=== PATIENT | male | born 1960 | race Caucasian/White ===

== ENCOUNTER 2018-09-23 21:27 | Emergency (ER) | payer BC ==
[2018-09-23] MEDS ORDERED: Sodium Chloride 0.9% 10 ML Syringe FLUSH PRN (21:44)
[2018-09-23] MEDS ORDERED: Sodium Chloride 0.9% 1,000 ML IV ONE (22:34)
[2018-09-23] MEDS ORDERED: Potassium Chloride 20 MEQ Tab.ER PO ONE (22:35)
[2018-09-23] MEDS ORDERED: Aspirin 81 MG Tab.Chew PO ONE (22:37)
--- NOTE | 2018-09-23 22:43 | EDM.PDOC ---
ED HPI GENERAL MEDICAL PROBLEM - General Chief Complaint: Chest Pain Stated Complaint: chest pressure Time Seen by Provider: 09/23/18 21:45 Source of Information: Reports: Patient History Limitations: Reports: No Limitations - History of Present Illness INITIAL COMMENTS - FREE TEXT/NARRATIVE: Patient comes to ER with complaint of chest pressure. Pressure essentially resolved by time of arrival. Normal day for patient prior to this. Was outside from 5-8:30 pm working and performing physically demanding tasks/mowing/bagging and feels that he did not drink enough water. Came inside and showered when work was done. Then has meal. Went to sit down and watch TV after eating and that is when he felt the chest pressure. He denies having actual chest pain. No other pain complaints. Pain did not radiate to neck/shoulder/arms. No acute increase in SOB noted. Patient is morbidly obese and has a baseline degree of SOB per self report and this did not change. No diaphoresis. Had some dizziness today but that is not unusual for him, he says that he has some chronic baseline lightheadedness and this was not in any way worse today. Episode of pressure lasted approximately 10 min. No other changes/complaints reported. Patient had negative stress test within the last few years. No history of NV/ CAD per patient but review of previous history shows concern for possible non- STEMI in 2015 - Related Data Allergies Allergy/AdvReac Type Severity Reaction Status Date / Time No Known Allergies Allergy Verified 09/23/18 21:43 Home Meds: Home Meds amLODIPine [Norvasc] 5 mg PO DAILY 01/13/15 [History] buPROPion HCl [Wellbutrin SR] 375 mg PO DAILY 03/24/16 [History] hydroCHLOROthiazide [Hydrochlorothiazide] 50 mg PO DAILY 03/24/16 [History] Cinnamon Bark [Cinnamon] 1,500 mg PO DAILY 09/23/18 [History] Ciprofloxacin [Ciprofloxacin HCl] 1 tab PO ASDIRECTED PRN 09/23/18 [History] Losartan Potassium 1 tab PO DAILY 09/23/18 [History] Magnesium Oxide [Magnesium] 500 mg PO DAILY #90 capsule 09/23/18 [Rx] Non-Formulary Medication [NF Drug] 1 each PO BID 09/23/18 [History] Non-Formulary Medication [NF Drug] 1 ml PO DAILY 09/23/18 [History] metFORMIN [Glucophage XR] 500 mg PO BIDMEALS 09/23/18 [History] Past Medical History HEENT History: Reports: Allergic Rhinitis, Hard of Hearing, Impaired Vision, Sinusitis, Other (See Below) Other HEENT History: Wears glasses, no hearing aide therapy, recurrent allergic sinusitis, possible idiopathic angioedema Cardiovascular History: Reports: Arrhythmia, CAD, High Cholesterol, Hypertension , NV, Other (See Below) Other Cardiovascular History: Questionable non-STEMI on 01/13/15, sinus tachycardia, chronic d-dimer elevation of unknown etiology Respiratory History: Reports: COPD, Sleep Apnea, Other (See Below) Other Respiratory History: Patient compliant with CPAP Gastrointestinal History: Reports: Chronic Constipation, Colon Polyp, Gastritis , GERD, GI Bleed, PUD, Other (See Below) Other Gastrointestinal History: Rectal hyperplastic colonic polyp on 11/15/13, small hiatal hernia with history of peptic ulcer disease and upper GI bleed in 2006 requiring transfusion as below, fatty liver and benign hepatic cyst Genitourinary History: Reports: Acute Renal Failure, Retention, Urinary, UTI, Recurrent, Other (See Below) Other Genitourinary History: History of phimosis and chronic urethral stricture which does require daily self catheterizations with previous procedures as below , acute renal failure in December 2014 Musculoskeletal History: Reports: Arthritis, Back Pain, Chronic, Neck Pain, Chronic, Osteoarthritis, Other (See Below) Other Musculoskeletal History: Moderate degenerative disc disease especially in the L3-S1 region with some foraminal stenosis Neurological History: Reports: None. Denies: Cerebral Aneurysms, Concussion, CVA, Headaches, Chronic, Head Trauma, Migraines, MS, Neuropathy, Diabetic, Neuropathy, Peripheral, Parkinson's, Seizure, TIA Psychiatric History: Reports: Anxiety, Depression. Denies: Abuse, Victim of, ADD, ADHD, Addiction, Psych Hospitalization(s), PTSD, Suicide Attempt, Suicidal Ideation Endocrine/Metabolic History: Reports: Diabetes, Type II, Hypothyroidism, Obesity /BMI 30+ Hematologic History: Reports: Blood Transfusion(s), Other (See Below) Other Hematologic History: Blood transfusions after GI bleed as above Immunologic History: Reports: None. Denies: AIDS, HIV, SLE Oncologic (Cancer) History: Reports: None. Denies: Basal Cell Carcinoma, Hodgkin's Lymphoma, Leukemia, Lymphoma, Malignant Melanoma, Non-Hodgkin's Lymphoma, Squamous Cell Carcinoma Dermatologic History: Reports: None. Denies: Eczema, Psoriasis - Infectious Disease History Infectious Disease History: Reports: Chicken Pox - Past Surgical History GI Surgical History: Reports: Colonoscopy, EGD, Polypectomy, Other (See Below) Male Surgical History: Reports: Other (See Below) Musculoskeletal Surgical History: Reports: Arthroscopic Knee, Arthroscopic Procedure, Other (See Below) - Past Imaging History Past Imaging History: Reports: Angiography, Cardiac Echo, CAT Scan, Stress Testing, Venous Doppler Social & Family History - Family History Family Medical History: Noncontributory HEENT: Reports: None, Cataract, Other (See Below) Other HEENT Family History: Father with cataracts Cardiac: Reports: CAD, High Cholesterol, Hypertension, NV, Other (See Below) Other Cardiac Family History: Father with initial NV in his 50s with history of CABG fatal NV at age 70, paternal grandfather with history of NV, hypertension in father and his sister, hyperlipidemia and his father and sister Respiratory: Reports: Asthma, Other (See Below) Other Respiratory Family Hisory: Half brother with asthma GI: Reports: Colon Polyps, Other (See Below) Other GI Family History: Father and sister with colonic polyps : Reports: Other (See Below) Other Family History: Mother with history of nephrectomy for possible renal cancer in her 70s OBGYN: Reports: None. Denies: Endometriosis, Recurrent Spontaneous Musculoskeletal: Reports: Back pain, Chronic, Osteoarthritis, RA, Other (See Below) Other Musculoskeletal Family History: Half sister with rheumatoid arthritis, mother with osteoarthritis and chronic back pain Neurological: Reports: None. Denies: Alzheimers Disease, Cerebral Aneurysms, CVA, Dementia, Migraines, MS, Neuropathy, Diabetic, Parkinson's, Seizure, TIA Psychiatric: Reports: Anxiety, Depression, Other (See Below) Other Psychiatric Family History: Father and sister with anxiety depression disorder Endocrine/Metabolic: Reports: Diabetes, type II, Hypothyroidism, IDDM, Other ( See Below) Other Endocrine/Metabolic Family History: IDDM in paternal uncle and paternal grandparents, father with AODM, mother with hypothyroidism Hematologic: Reports: None. Denies: Anemia, Transfusion Reaction Immunologic: Reports: None. Denies: AIDS, HIV Dermatologic: Reports: None. Denies: Angiodema, Eczema, Psoriasis Oncologic: Reports: Colon, Renal, Other (See Below) Other Oncologic Family History: Mother with possible renal cancer as above, paternal grandmother with colon cancer at age 84, paternal uncle with colon cancer in his 60s, patient denies history of bladder cancer in paternal grandfather despite previous records from [facility] - Tobacco Use Smoking Status *Q: Never Smoker - Caffeine Use Caffeine Use: Reports: Coffee (2 cups per day), Soda (2 sodas per day). Denies : Energy Drinks, Tea - Alcohol Use Alcohol Use History: No Alcohol Use Frequency: Rarely - Recreational Drug Use Recreational Drug Use: No Drug Use in Last 12 Months: No - Living Situation & Occupation Living situation: Reports: , with Family Occupation: Employed ED ROS GENERAL - Review of Systems Review Of Systems: ROS reveals no pertinent complaints other than HPI. ED EXAM, GENERAL - Physical Exam Exam: See Below Exam Limited By: No Limitations General Appearance: Alert, No Apparent Distress, Obese Eye Exam: Bilateral Eye: EOMI, PERRL Ears: Normal External Exam Nose: No: Nasal Deformity, Nasal Swelling, Nasal Drainage Throat/Mouth: Normal Lips, Normal Voice, No Airway Compromise Head: Atraumatic, Normocephalic Neck: Normal Inspection, Supple, Non-Tender, Full Range of Motion Respiratory/Chest: No Respiratory Distress, Lungs Clear, Normal Breath Sounds, No Accessory Muscle Use, Chest Non-Tender Cardiovascular: No Edema, No Murmur, Tachycardia Peripheral Pulses: 2+: Radial (L), Radial (R) GI/Abdominal: Normal Bowel Sounds, Soft, Non-Tender (Male) Exam: Deferred Rectal (Males) Exam: Deferred Back Exam: Normal Inspection. No: CVA Tenderness (L), CVA Tenderness (R), Muscle Spasm, Paraspinal Tenderness, Vertebral Tenderness Extremities: Non-Tender, Normal Capillary Refill Neurological: Alert, Oriented, Normal Cognition, Normal Gait, No Motor/Sensory Deficits Psychiatric: Normal Affect, Normal Mood Skin Exam: Warm, Dry EKG INTERPRETATION EKG Date: 09/23/18 Time: 21:31 Rhythm: Other (sinus tach) Rate (Beats/Min): 101 [place]: Normal P-Wave: Present QRS: Normal ST-T: Normal QT: Normal Comparison: No Change Course - Vital Signs Last Recorded V/S: Last Vital Signs Temp 36.3 C 09/24/18 04:10 Pulse 68 09/24/18 04:10 Resp 19 09/24/18 04:10 BP 136/65 07/28/19 04:10 Pulse Ox 94 L 09/24/18 04:10 - Orders/Labs/Meds Orders: Active Orders 24 hr Category Date Time Status Cardiac Monitoring [RC] . DIRECTED Care 09/23/18 21:45 Active EKG Documentation Completion [RC] ASDIRECTED Care 09/23/18 21:43 Active EKG Documentation Completion [RC] ASDIRECTED Care 09/24/18 04:15 Active Peripheral IV Care [RC] . DIRECTED Care 09/23/18 21:44 Active Vital Signs [RC] Q1H Care 09/23/18 22:52 Active Chest 2V [CR] Stat Exams 09/23/18 21:45 Taken Peripheral IV Insertion Adult [OM.PC] Routine Oth 09/23/18 21:44 Ordered Labs: Laboratory Tests 09/23/18 09/23/18 09/23/18 Range/Units 21:40 21:40 21:40 WBC 12.8 H (4.0-10.2) K/uL RBC 5.17 (4.33-5.41) M/uL Hgb 14.4 D (13.1-16.8) g/dL Hct 42.3 (39.0-49.0) % MCV 81.8 L (84.0-98.0) fL MCH 27.9 L (28.2-33.3) pg MCHC 34.0 (31.7-36.0) g/dL RDW 15.2 H (11.2-14.1) % Plt Count 238 (150-350) K/uL Neut % (Auto) 69.3 (45.0-80.0) % Lymph % (Auto) 21.9 (10.0-50.0) % [place] % (Auto) 7.1 (2.0-14.0) % Eos % (Auto) 1.2 (0.0-5.0) % Baso % (Auto) 0.5 (0.0-2.0) % Neut # (Auto) 8.87 H (1.40-7.00) K/uL Lymph # (Auto) 2.81 (0.50-3.50) K/uL [place] # (Auto) 0.91 (0.00-1.00) K/uL Eos # (Auto) 0.16 (0.00-0.50) K/uL Baso # (Auto) 0.06 (0.00-0.20) K/uL PT 11.5 (9.5-12.0) SEC INR 1.1 APTT 30.6 (21.0-31.3) SEC D-Dimer, Quantitative (0-400) ng/mL Sodium 137 (136-145) mmol/L Potassium 3.1 L (3.5-5.1) mmol/L Chloride 99 (98-107) mmol/L Carbon Dioxide 27.8 (21.0-32.0) mmol/L BUN 24 H (7-18) mg/dL Creatinine 1.44 H (0.51-1.17) mg/dL Est Cr Clr Drug Dosing 61.65 mL/min Estimated GFR (MDRD) 50 mL/min Glucose 156 H (74-106) mg/dL Lactic Acid (0.4-2.0) mmol/L Calcium 8.9 (8.5-10.1) mg/dL Magnesium 1.6 L (1.8-2.4) mg/dL Total Bilirubin 1.0 (0.2-1.0) mg/dL AST 18 (15-37) U/L ALT 33 (12-78) U/L Alkaline Phosphatase 71 (46-116) IU/L Creatine Kinase 122 (26-308) U/L Creatine Kinase Index 0.7 (0.0-2.5) % CK-MB (CK-2) 0.80 (0.00-3.60) ng/mL Troponin I 0.000 (0.000-0.056) ng/mL NT-Pro-B Natriuret Pep 19 (0-125) pg/mL Total Protein 7.3 (6.4-8.2) g/dL Albumin 3.7 (3.4-5.0) g/dL TSH, Ultra Sensitive 4.707 H (0.358-3.740) mIU/mL 09/23/18 09/23/18 09/24/18 Range/Units 21:40 21:40 03:30 WBC (4.0-10.2) K/uL RBC (4.33-5.41) M/uL Hgb (13.1-16.8) g/dL Hct (39.0-49.0) % MCV (84.0-98.0) fL MCH (28.2-33.3) pg MCHC (31.7-36.0) g/dL RDW (11.2-14.1) % Plt Count (150-350) K/uL Neut % (Auto) (45.0-80.0) % Lymph % (Auto) (10.0-50.0) % [place] % (Auto) (2.0-14.0) % Eos % (Auto) (0.0-5.0) % Baso % (Auto) (0.0-2.0) % Neut # (Auto) (1.40-7.00) K/uL Lymph # (Auto) (0.50-3.50) K/uL [place] # (Auto) (0.00-1.00) K/uL Eos # (Auto) (0.00-0.50) K/uL Baso # (Auto) (0.00-0.20) K/uL PT (9.5-12.0) SEC INR APTT (21.0-31.3) SEC D-Dimer, Quantitative 127 (0-400) ng/mL Sodium (136-145) mmol/L Potassium (3.5-5.1) mmol/L Chloride (98-107) mmol/L Carbon Dioxide (21.0-32.0) mmol/L BUN (7-18) mg/dL Creatinine (0.51-1.17) mg/dL Est Cr Clr Drug Dosing mL/min Estimated GFR (MDRD) mL/min Glucose (74-106) mg/dL Lactic Acid 1.4 (0.4-2.0) mmol/L Calcium (8.5-10.1) mg/dL Magnesium (1.8-2.4) mg/dL Total Bilirubin (0.2-1.0) mg/dL AST (15-37) U/L ALT (12-78) U/L Alkaline Phosphatase (46-116) IU/L Creatine Kinase (26-308) U/L Creatine Kinase Index (0.0-2.5) % CK-MB (CK-2) (0.00-3.60) ng/mL Troponin I 0.003 (0.000-0.056) ng/mL NT-Pro-B Natriuret Pep (0-125) pg/mL Total Protein (6.4-8.2) g/dL Albumin (3.4-5.0) g/dL TSH, Ultra Sensitive (0.358-3.740) mIU/mL Meds: Medications Discontinued Medications Generic Name Dose Route Start Last Admin Trade Name Freq PRN Reason Stop Dose Admin Aspirin 324 mg 09/23/18 22:37 09/24/18 00:34 Aspirin PO 09/23/18 22:38 324 mg ONETIME ONE Administration Sodium Chloride 1,000 mls @ 500 mls/hr 09/23/18 22:34 09/24/18 00:36 Normal Saline IV 09/24/18 00:33 500 mls/hr .BOLUS ONE Administration Magnesium Sulfate/Dextrose 1 100 mls @ 100 mls/hr 09/23/18 22:35 09/24/18 00: 35 gm/ Premix IV 09/23/18 23:34 100 mls/hr ONETIME ONE Administration Magnesium Sulfate/Dextrose 1 100 mls @ 100 mls/hr 09/24/18 01:00 09/24/18 02: 24 gm/ Premix IV 09/24/18 01:59 100 mls/hr ONETIME ONE Administration Potassium Chloride 40 meq 09/23/18 22:35 09/24/18 00:35 Klor-Con M20 PO 09/23/18 22:36 40 meq ONETIME ONE Administration Potassium Chloride 40 meq 09/24/18 02:00 09/24/18 02:24 Klor-Con M20 PO 09/24/18 02:01 40 meq ONETIME ONE Administration Sodium Chloride 10 ml 09/23/18 21:44 Saline Flush FLUSH ASDIRECTED PRN Keep Vein Open - Radiology Interpretation Free Text/Narrative:: Chest xray pending Radiology review. No focal infiltrate noted, no other acute processes noted. - Re-Assessments/Exams Free Text/Narrative Re-Assessment/Exam: Patient remained pain free. ASA given. Suspect dehydration in combination with GERD/eating likely contributed to patient's complaints this evening. Troponin and DDimer in normal range. No acute ST changes suggestive of ischemia noted on EKG. WBC mildly elevated at 12.8 Potassium decreased at 3.1 Patient has history of intermittent renal insufficiency and tonight BUN noted to be 24 and Cr 1.44 Suspect dehydration contributing to their elevation. Glu 156 Mg low at 1.6 TSH elevated at 4.7 Patient does not want admission for full rule out NV. He is willing to stay in the ER for a 6 hour timed Troponin draw. During this time he will receive IV fluids and IV Mag replacement to help bolster his Mag levels and overall hydration. Potassium PO will be given. If second lab remains unremarkable, patient is to follow up this week with his primary provider to discuss having a new stress test scheduled. He is also to have a full thyroid workup, and have his potassium and magnesium levels checked. BP should also be rechecked. He is to start regular Magnesium supplementation. Precautions reviewed. He is to follow up at the ER if any sudden acute worsening symptoms are noted. Free Text/Narrative Re-Assessment/Exam: 09/24/18 14:56 Second Troponin measurement normal at 0300. Patient symptom-free and wanting to go home. Repeat EKG showed sinus rhythm with rate of 68. Low amplitude P wave. No acute ST changes suggestive of ischemia. To follow up with primary provider this week. Departure - Departure Time of Disposition: 04:30 Disposition: Home, Self-Care 01 Condition: Good Clinical Impression: Chest heaviness, TSH elevation, Hypomagnesemia, Hypokalemia - Discharge Information *PRESCRIPTION DRUG MONITORING PROGRAM REVIEWED*: Not Applicable *COPY OF PRESCRIPTION DRUG MONITORING REPORT IN PATIENT MERYL: Not Applicable Prescriptions: Magnesium Oxide [Magnesium] 500 mg PO DAILY #90 capsule Instructions: Hypomagnesemia, Hypokalemia, Hypothyroidism, Nonspecific Chest Pain, [id number] Referrals: Bolivar Corral PA-C [Primary Care Provider] - Forms: ED Department Discharge Additional Instructions: It is very important that you follow up with your primary provider this week and 1-discuss new stress test need 2-have full Thyroid panel performed and be started on Thyroid replacement 3-have your BP rechecked 4-have your potassium and magnesium levels rechecked. purification supervisor Magnesium and start to take daily replacement of 400-500mg daily. Have your levels rechecked again in a month or two to see if any additional dosing is needed. 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 Do not stop your magnesium. Low levels are linked to lots of issues, such as dizziness and elevated blood pressure. You may need to start potassium too depending on what your levels are when you are rechecked. Follow up as needed if you have sudden worsening problems again. - My Orders Last 24 Hours: My Active Orders 09/23/18 21:43 EKG Documentation Completion [RC] ASDIRECTED 09/23/18 21:44 Peripheral IV Care [RC] . DIRECTED Peripheral IV Insertion Adult [OM.PC] Routine 09/23/18 21:45 Cardiac Monitoring [RC] . DIRECTED Chest 2V [CR] Stat 09/23/18 22:52 Vital Signs [RC] Q1H 09/24/18 04:15 EKG Documentation Completion [RC] ASDIRECTED - Assessment/Plan Last 24 Hours: My Active Orders 09/23/18 21:43 EKG Documentation Completion [RC] ASDIRECTED 09/23/18 21:44 Peripheral IV Care [RC] . DIRECTED Peripheral IV Insertion Adult [OM.PC] Routine 09/23/18 21:45 Cardiac Monitoring [RC] . DIRECTED Chest 2V [CR] Stat 09/23/18 22:52 Vital Signs [RC] Q1H 09/24/18 04:15 EKG Documentation Completion [RC] ASDIRECTED
[2018-09-24] MEDS ORDERED: Potassium Chloride 20 MEQ Tab.ER PO ONE (02:00)
[2018-09-24 02:32] VITALS: PULSE 68
[2018-09-24 05:07] VITALS: BP 136/65
== END 2018-09-24 04:40 | disposition home or self-care (01) ==
LOC: LL.ED 21:27
DX: R07.89 Other chest pain (principal); R94.6 Abnormal results of thyroid function studies; E83.42 Hypomagnesemia; E87.6 Hypokalemia; E78.00 Pure hypercholesterolemia, unspecified; I10 Essential (primary) hypertension; I25.2 Old myocardial infarction; J44.9 Chronic obstructive pulmonary disease, unspecified; F41.9 Anxiety disorder, unspecified; F32.9 Major depressive disorder, single episode, unspecified; E11.9 Type 2 diabetes mellitus without complications; Z79.899 Other long term (current) drug therapy
CPT/HCPCS: 36415; 71046; 80053; 82550; 82553; 83605; 83735; 83880; 84443; 84484; 85025; 85379; 85610; 85730; 93005; 96361; 96365; 96366; 99285; A9270; J3475; J7030

== ENCOUNTER 2019-12-31 12:05 | Emergency (ER) | payer BC ==
[2019-12-31 13:18] VITALS: BP 135/66; PULSE 77
--- NOTE | 2019-12-31 13:56 | EDM.PDOC ---
ED HPI GENERAL MEDICAL PROBLEM - General Chief Complaint: Back Pain or Injury Stated Complaint: L hip/back pain, R hip pain, pain with urination Time Seen by Provider: 12/31/19 12:15 Source of Information: Reports: Patient History Limitations: Reports: No Limitations - History of Present Illness INITIAL COMMENTS - FREE TEXT/NARRATIVE: Pt fell a week ago while in [place] and has persisitent pain in low back and both hips has had some hematuria but it is improved Still with some pain after urination Onset: Gradual Duration: Day(s): Location: Reports: Abdomen, Back, Pelvis Quality: Reports: Ache, Throbbing Severity: Moderate Worsens with: Reports: Movement Context: Reports: Trauma - Related Data Allergies Allergy/AdvReac Type Severity Reaction Status Date / Time No Known Allergies Allergy Verified 09/23/18 21:43 Home Meds: Home Meds amLODIPine [Norvasc] 10 mg PO DAILY 01/13/15 [History] hydroCHLOROthiazide [Hydrochlorothiazide] 50 mg PO DAILY 03/24/16 [History] Losartan Potassium 1 tab PO DAILY 09/23/18 [History] metFORMIN [Glucophage XR] 1,000 mg PO BIDMEALS 09/23/18 [History] Ciprofloxacin [Ciprofloxacin HCl] 1 tab PO ASDIRECTED 12/31/19 [History] Escitalopram [Lexapro] 1 tab PO DAILY 12/31/19 [History] Levothyroxine [Synthroid] 1 tab PO DAILY 12/31/19 [History] buPROPion HCL [Wellbutrin Xl] 1 tab PO DAILY 12/31/19 [History] buPROPion [Wellbutrin] 1 tab PO DAILY 12/31/19 [History] tadalafiL [Tadalafil] 1 tab PO DAILY 12/31/19 [History] Past Medical History HEENT History: Reports: Allergic Rhinitis, Hard of Hearing, Impaired Vision, Sinusitis, Other (See Below) Other HEENT History: Wears glasses, no hearing aide therapy, recurrent allergic sinusitis, possible idiopathic angioedema Cardiovascular History: Reports: Arrhythmia, CAD, High Cholesterol, Hypertension, SC, Other (See Below) Other Cardiovascular History: Questionable non-STEMI on 01/13/15, sinus tachycardia, chronic d-dimer elevation of unknown etiology Respiratory History: Reports: COPD, Sleep Apnea, Other (See Below) Other Respiratory History: Patient compliant with CPAP Gastrointestinal History: Reports: Chronic Constipation, Colon Polyp, Gastritis, GERD, GI Bleed, PUD, Other (See Below) Other Gastrointestinal History: Rectal hyperplastic colonic polyp on 11/15/13, small hiatal hernia with history of peptic ulcer disease and upper GI bleed in 2006 requiring transfusion as below, fatty liver and benign hepatic cyst Genitourinary History: Reports: Acute Renal Failure, Retention, Urinary, UTI, Recurrent, Other (See Below) Other Genitourinary History: History of phimosis and chronic urethral stricture which does require daily self catheterizations with previous procedures as below, acute renal failure in December 2014 Musculoskeletal History: Reports: Arthritis, Back Pain, Chronic, Neck Pain, Chronic, Osteoarthritis, Other (See Below) Other Musculoskeletal History: Moderate degenerative disc disease especially in the L3-S1 region with some foraminal stenosis Neurological History: Reports: None Psychiatric History: Reports: Anxiety, Depression Endocrine/Metabolic History: Reports: Diabetes, Type II, Hypothyroidism, Obesity/BMI 30+ Hematologic History: Reports: Blood Transfusion(s), Other (See Below) Other Hematologic History: Blood transfusions after GI bleed as above Immunologic History: Reports: None Oncologic (Cancer) History: Reports: None Dermatologic History: Reports: None - Infectious Disease History Infectious Disease History: Reports: Chicken Pox - Past Surgical History Head Surgeries/Procedures: Reports: None GI Surgical History: Reports: Colonoscopy, EGD, Polypectomy, Other (See Below) Male Surgical History: Reports: Other (See Below) Musculoskeletal Surgical History: Reports: Arthroscopic Knee, Arthroscopic Procedure, Other (See Below) - Past Imaging History Past Imaging History: Reports: Angiography, Cardiac Echo, CAT Scan, Stress Testing, Venous Doppler Social & Family History - Family History Family Medical History: Noncontributory HEENT: Reports: None, Cataract, Other (See Below) Other HEENT Family History: Father with cataracts Cardiac: Reports: CAD, High Cholesterol, Hypertension, SC, Other (See Below) Other Cardiac Family History: Father with initial SC in his 50s with history of CABG fatal SC at age 70, paternal grandfather with history of SC, hypertension in father and his sister, hyperlipidemia and his father and sister Respiratory: Reports: Asthma, Other (See Below) Other Respiratory Family Hisory: Half brother with asthma GI: Reports: Colon Polyps, Other (See Below) Other GI Family History: Father and sister with colonic polyps : Reports: Other (See Below) Other Family History: Mother with history of nephrectomy for possible renal cancer in her 70s OBGYN: Reports: None Musculoskeletal: Reports: Back pain, Chronic, Osteoarthritis, RA, Other (See Below) Other Musculoskeletal Family History: Half sister with rheumatoid arthritis, mother with osteoarthritis and chronic back pain Neurological: Reports: None Psychiatric: Reports: Anxiety, Depression, Other (See Below) Other Psychiatric Family History: Father and sister with anxiety depression disorder Endocrine/Metabolic: Reports: Diabetes, type II, Hypothyroidism, IDDM, Other (See Below) Other Endocrine/Metabolic Family History: IDDM in paternal uncle and paternal grandparents, father with AODM, mother with hypothyroidism Hematologic: Reports: None Immunologic: Reports: None Dermatologic: Reports: None Oncologic: Reports: Colon, Renal, Other (See Below) Other Oncologic Family History: Mother with possible renal cancer as above, paternal grandmother with colon cancer at age 84, paternal uncle with colon cancer in his 60s, patient denies history of bladder cancer in paternal grandfather despite previous records from [facility] - Tobacco Use Tobacco Use Status *Q: Former Tobacco User Used Tobacco, but Quit: Yes Month/Year Tobacco Last Used: 1989 Second Hand Smoke Exposure: No - Caffeine Use Caffeine Use: Reports: Coffee, Soda - Recreational Drug Use Recreational Drug Use: No - Living Situation & Occupation Living situation: Reports: , with Family Occupation: Employed ED ROS GENERAL - Review of Systems Review Of Systems: See Below Respiratory: Reports: No Symptoms Cardiovascular: Reports: No Symptoms GI/Abdominal: Reports: No Symptoms : Reports: Dysuria, Flank Pain, Hematuria Musculoskeletal: Reports: Back Pain, Joint Pain ED EXAM,LOWER BACK PAIN/INJURY - Physical Exam Exam: See Below Exam Limited By: No Limitations General Appearance: Alert, WD/WN, Mild Distress Head: Atraumatic Neck: Non-Tender GI/Abdominal: Soft, Non-Tender Back Exam: CVA Tenderness (L), CVA Tenderness (R), Decreased Range of Motion Extremities: Normal Inspection Neurological: Alert, Normal Mood/Affect Psychiatric: Normal Affect, Normal Mood Course - Vital Signs Last Recorded V/S: Last Vital Signs Temp 98.3 F 12/31/19 13:16 Pulse 77 12/31/19 13:16 Resp 18 12/31/19 13:16 BP 135/66 12/31/19 13:16 Pulse Ox 95 12/31/19 13:16 - Orders/Labs/Meds Orders: Active Orders 24 hr Category Date Time Status Hip Min 2V Bi [CR] Stat Exams 12/31/19 12:20 Taken Lumbar Spine 2 or 3V [CR] Stat Exams 12/31/19 12:35 Taken CULTURE URINE [RM] Stat Lab 12/31/19 13:10 Received - Re-Assessments/Exams Free Text/Narrative Re-Assessment/Exam: 12/31/19 13:54 Xray: Await report See UA Departure - Departure Time of Disposition: 14:00 Disposition: Home, Self-Care 01 Clinical Impression: Lumbar pain UTI (urinary tract infection) Qualifiers: Urinary tract infection type: site unspecified Hematuria presence: with hematuria Qualified Code(s): N39.0 - Urinary tract infection, site not specified; R31.9 - Hematuria, unspecified - Discharge Information *PRESCRIPTION DRUG MONITORING PROGRAM REVIEWED*: Not Applicable *COPY OF PRESCRIPTION DRUG MONITORING REPORT IN PATIENT MERYL: Not Applicable Instructions: Urinary Tract Infection, Adult, Acute Back Pain, Adult Referrals: Bolivar Corral PA-C [Primary Care Provider] - Additional Instructions: Rx Bactrim DS One pill twice a day for 10 days Follow up in clinic Tylenol or Motrin as needed Sepsis Event Note (ED) - Evaluation Sepsis Screening Result: No Definite Risk - Focused Exam Vital Signs: Vital Signs Temp Pulse Resp BP Pulse Ox 12/31/19 13:16 98.3 F 77 18 135/66 95 - My Orders Last 24 Hours: My Active Orders 12/31/19 12:20 Hip Min 2V Bi [CR] Stat 12/31/19 12:35 Lumbar Spine 2 or 3V [CR] Stat 12/31/19 13:10 CULTURE URINE [RM] Stat - Assessment/Plan Last 24 Hours: My Active Orders 12/31/19 12:20 Hip Min 2V Bi [CR] Stat 12/31/19 12:35 Lumbar Spine 2 or 3V [CR] Stat 12/31/19 13:10 CULTURE URINE [RM] Stat
== END 2019-12-31 14:40 | disposition home or self-care (01) ==
LOC: SUPCPDRO 12:05 → LL.ED 12:05
DX: N39.0 Urinary tract infection, site not specified (principal); R31.9 Hematuria, unspecified; I25.10 Atherosclerotic heart disease of native coronary artery without angina pectoris; I10 Essential (primary) hypertension; I25.2 Old myocardial infarction; J44.9 Chronic obstructive pulmonary disease, unspecified; Z79.899 Other long term (current) drug therapy; F41.9 Anxiety disorder, unspecified; F32.9 Major depressive disorder, single episode, unspecified; E11.9 Type 2 diabetes mellitus without complications; E03.9 Hypothyroidism, unspecified; Z79.84 Long term (current) use of oral hypoglycemic drugs; E66.9 Obesity, unspecified
CPT/HCPCS: 72100; 81001; 87086; 99283-25

== ENCOUNTER 2020-01-19 14:37 | Emergency (ER) | payer BC ==
[2020-01-19 15:16] LABS: CHLORIDE,CL 99 mmol/L (98-107); SODIUM,NA 136 mmol/L (136-145)
--- NOTE | 2020-01-19 16:11 | EDM.PDOC ---
ED HPI GENERAL MEDICAL PROBLEM - General Chief Complaint: General Stated Complaint: left arm numbness Time Seen by Provider: 01/19/20 14:38 Source of Information: Reports: Patient History Limitations: Reports: No Limitations - History of Present Illness INITIAL COMMENTS - FREE TEXT/NARRATIVE: Patient woke from nap and noted left arm tingling/numbness. No other complaint. No chest pain at this time but has had increased problems with heartburn over the past week. Uses Tums with some success. Denies nausea/sweating/sob. No change in activity/injuries. Has some CAD/MN in family history. No history of previous MN for patient. Has not had this complaint before. Has improved since first noted and now numbness is only involving left hand. - Related Data Allergies Allergy/AdvReac Type Severity Reaction Status Date / Time No Known Allergies Allergy Verified 01/19/20 15:10 Home Meds: Home Meds amLODIPine [Norvasc] 10 mg PO DAILY 01/13/15 [History] hydroCHLOROthiazide [Hydrochlorothiazide] 50 mg PO DAILY 03/24/16 [History] Losartan Potassium 1 tab PO DAILY 09/23/18 [History] metFORMIN [Glucophage XR] 1,000 mg PO BIDMEALS 09/23/18 [History] Ciprofloxacin [Ciprofloxacin HCl] 1 tab PO ASDIRECTED 12/31/19 [History] Escitalopram [Lexapro] 1 tab PO DAILY 12/31/19 [History] Levothyroxine [Synthroid] 1 tab PO DAILY 12/31/19 [History] buPROPion HCL [Wellbutrin Xl] 1 tab PO DAILY 12/31/19 [History] buPROPion [Wellbutrin] 1 tab PO DAILY 12/31/19 [History] tadalafiL [Tadalafil] 1 tab PO DAILY 12/31/19 [History] Past Medical History HEENT History: Reports: Allergic Rhinitis, Hard of Hearing, Impaired Vision, Sinusitis, Other (See Below) Other HEENT History: Wears glasses, no hearing aide therapy, recurrent allergic sinusitis, possible idiopathic angioedema Cardiovascular History: Reports: Arrhythmia, CAD, High Cholesterol, Hypertension, MN, Other (See Below) Other Cardiovascular History: Questionable non-STEMI on 01/13/15, sinus tachycardia, chronic d-dimer elevation of unknown etiology Respiratory History: Reports: COPD, Sleep Apnea, Other (See Below) Other Respiratory History: Patient compliant with CPAP Gastrointestinal History: Reports: Chronic Constipation, Colon Polyp, Gastritis, GERD, GI Bleed, PUD, Other (See Below) Other Gastrointestinal History: Rectal hyperplastic colonic polyp on 11/15/13, small hiatal hernia with history of peptic ulcer disease and upper GI bleed in 2006 requiring transfusion as below, fatty liver and benign hepatic cyst Genitourinary History: Reports: Acute Renal Failure, Retention, Urinary, UTI, Recurrent, Other (See Below) Other Genitourinary History: History of phimosis and chronic urethral stricture which does require daily self catheterizations with previous procedures as below, acute renal failure in December 2014 Musculoskeletal History: Reports: Arthritis, Back Pain, Chronic, Neck Pain, Chronic, Osteoarthritis, Other (See Below) Other Musculoskeletal History: Moderate degenerative disc disease especially in the L3-S1 region with some foraminal stenosis Neurological History: Reports: None Psychiatric History: Reports: Anxiety, Depression Endocrine/Metabolic History: Reports: Diabetes, Type II, Hypothyroidism, Obesity/BMI 30+ Hematologic History: Reports: Blood Transfusion(s), Other (See Below) Other Hematologic History: Blood transfusions after GI bleed as above Immunologic History: Reports: None Oncologic (Cancer) History: Reports: None Dermatologic History: Reports: None - Infectious Disease History Infectious Disease History: Reports: Chicken Pox - Past Surgical History Head Surgeries/Procedures: Reports: None GI Surgical History: Reports: Colonoscopy, EGD, Polypectomy, Other (See Below) Male Surgical History: Reports: Other (See Below) Musculoskeletal Surgical History: Reports: Arthroscopic Knee, Arthroscopic Procedure, Other (See Below) - Past Imaging History Past Imaging History: Reports: Angiography, Cardiac Echo, CAT Scan, Stress Testing, Venous Doppler Social & Family History - Family History Family Medical History: No Pertinent Family History HEENT: Reports: None, Cataract, Other (See Below) Other HEENT Family History: Father with cataracts Cardiac: Reports: CAD, High Cholesterol, Hypertension, MN, Other (See Below) Other Cardiac Family History: Father with initial MN in his 50s with history of CABG fatal MN at age 70, paternal grandfather with history of MN, hypertension in father and his sister, hyperlipidemia and his father and sister Respiratory: Reports: Asthma, Other (See Below) Other Respiratory Family Hisory: Half brother with asthma GI: Reports: Colon Polyps, Other (See Below) Other GI Family History: Father and sister with colonic polyps : Reports: Other (See Below) Other Family History: Mother with history of nephrectomy for possible renal cancer in her 70s OBGYN: Reports: None Musculoskeletal: Reports: Back pain, Chronic, Osteoarthritis, RA, Other (See Below) Other Musculoskeletal Family History: Half sister with rheumatoid arthritis, mother with osteoarthritis and chronic back pain Neurological: Reports: None Psychiatric: Reports: Anxiety, Depression, Other (See Below) Other Psychiatric Family History: Father and sister with anxiety depression disorder Endocrine/Metabolic: Reports: Diabetes, type II, Hypothyroidism, IDDM, Other (See Below) Other Endocrine/Metabolic Family History: IDDM in paternal uncle and paternal grandparents, father with AODM, mother with hypothyroidism Hematologic: Reports: None Immunologic: Reports: None Dermatologic: Reports: None Oncologic: Reports: Colon, Renal, Other (See Below) Other Oncologic Family History: Mother with possible renal cancer as above, paternal grandmother with colon cancer at age 84, paternal uncle with colon cancer in his 60s, patient denies history of bladder cancer in paternal grandfather despite previous records [facility] - Tobacco Use Tobacco Use Status *Q: Never Tobacco User - Caffeine Use Caffeine Use: Reports: Soda Other Caffeine Use: 2 per day - Recreational Drug Use Recreational Drug Use: No - Living Situation & Occupation Living situation: Reports: , with Family Occupation: Employed ED ROS GENERAL - Review of Systems Review Of Systems: See Below Constitutional: Reports: No Symptoms HEENT: Reports: No Symptoms Respiratory: Reports: No Symptoms Cardiovascular: Reports: No Symptoms Endocrine: Reports: No Symptoms GI/Abdominal: Reports: Other (frequent heart burn). Denies: Nausea, Vomiting Musculoskeletal: Reports: No Symptoms Skin: Reports: No Symptoms Neurological: Reports: Numbness (left arm/hand tingling/mild numbness) Psychiatric: Reports: No Symptoms Hematologic/Lymphatic: Reports: No Symptoms ED EXAM, GENERAL - Physical Exam Exam: See Below Exam Limited By: No Limitations General Appearance: Alert, No Apparent Distress, Obese Eye Exam: Bilateral Eye: EOMI, PERRL Ears: Hearing Grossly Normal Nose: No: Nasal Deformity, Nasal Swelling, Nasal Drainage Throat/Mouth: Normal Lips, Normal Voice, No Airway Compromise Head: Normocephalic, Sinus Tenderness Neck: Supple Respiratory/Chest: No Respiratory Distress, Lungs Clear, Normal Breath Sounds, No Accessory Muscle Use, Chest Non-Tender Cardiovascular: Regular Rate, Rhythm, No Edema, No Murmur Peripheral Pulses: 2+: Radial (L), Radial (R) GI/Abdominal: Normal Bowel Sounds, Soft, Non-Tender, Other (very obese) (Male) Exam: Deferred Rectal (Males) Exam: Deferred Back Exam: No: CVA Tenderness (L), CVA Tenderness (R), Muscle Spasm Extremities: Non-Tender, Normal Capillary Refill Neurological: Alert, Oriented, Normal Cognition, No Motor/Sensory Deficits Psychiatric: Normal Affect, Normal Mood Skin Exam: Warm, Dry, Intact, Normal Color #1 Interpretation EKG Date: 01/19/20 Time: 14:53 Rhythm: NSR Rate (Beats/Min): 72 [place]: Normal P-Wave: Present QRS: Normal ST-T: Normal QT: Normal Comparison: No Change Course - Vital Signs Last Recorded V/S: Last Vital Signs Temp 36.8 C 01/19/20 17:30 Pulse 69 01/19/20 17:30 Resp 18 01/19/20 17:30 BP 139/56 L 01/19/20 17:30 Pulse Ox 96 01/19/20 17:30 - Orders/Labs/Meds Orders: Active Orders 24 hr Category Date Time Status EKG Documentation Completion [RC] ASDIRECTED Care 01/19/20 14:41 Active EKG Documentation Completion [RC] ASDIRECTED Care 01/19/20 16:15 Active Chest 2V [CR] Stat Exams 01/19/20 14:40 Taken Labs: Laboratory Tests 01/19/20 01/19/20 01/19/20 Range/Units 14:49 14:49 14:49 WBC 9.0 (4.0-10.2) K/uL RBC 4.67 (4.33-5.41) M/uL Hgb 13.1 (13.1-16.8) g/dL Hct 39.6 (39.0-49.0) % MCV 84.8 D (84.0-98.0) fL MCH 28.1 L (28.2-33.3) pg MCHC 33.1 (31.7-36.0) g/dL RDW 14.4 H (11.2-14.1) % Plt Count 222 (150-350) K/uL Neut % (Auto) 58.2 (45.0-80.0) % Lymph % (Auto) 28.2 (10.0-50.0) % Waller % (Auto) 8.8 (2.0-14.0) % Eos % (Auto) 3.5 (0.0-5.0) % Baso % (Auto) 1.3 (0.0-2.0) % Neut # (Auto) 5.25 (1.40-7.00) K/uL Lymph # (Auto) 2.55 (0.50-3.50) K/uL Waller # (Auto) 0.80 (0.00-1.00) K/uL Eos # (Auto) 0.32 (0.00-0.50) K/uL Baso # (Auto) 0.12 (0.00-0.20) K/uL D-Dimer, Quantitative 190 (0-400) ng/mL Sodium 136 (136-145) mmol/L Potassium 3.8 (3.5-5.1) mmol/L Chloride 99 (98-107) mmol/L Carbon Dioxide 28.7 (21.0-32.0) mmol/L BUN 19 H (7-18) mg/dL Creatinine 1.00 (0.51-1.17) mg/dL Est Cr Clr Drug Dosing TNP Estimated GFR (MDRD) > 60 mL/min Glucose 139 H (74-106) mg/dL Calcium 8.0 L (8.5-10.1) mg/dL Magnesium 1.5 L (1.8-2.4) mg/dL Total Bilirubin 0.4 (0.2-1.0) mg/dL AST 29 (15-37) U/L ALT 56 (12-78) U/L Alkaline Phosphatase 59 (46-116) IU/L Troponin I 0.000 (0.000-0.056) ng/mL NT-Pro-B Natriuret Pep 64 (0-125) pg/mL Total Protein 6.5 (6.4-8.2) g/dL Albumin 3.3 L (3.4-5.0) g/dL 01/19/20 Range/Units 18:44 WBC (4.0-10.2) K/uL RBC (4.33-5.41) M/uL Hgb (13.1-16.8) g/dL Hct (39.0-49.0) % MCV (84.0-98.0) fL MCH (28.2-33.3) pg MCHC (31.7-36.0) g/dL RDW (11.2-14.1) % Plt Count (150-350) K/uL Neut % (Auto) (45.0-80.0) % Lymph % (Auto) (10.0-50.0) % Waller % (Auto) (2.0-14.0) % Eos % (Auto) (0.0-5.0) % Baso % (Auto) (0.0-2.0) % Neut # (Auto) (1.40-7.00) K/uL Lymph # (Auto) (0.50-3.50) K/uL Waller # (Auto) (0.00-1.00) K/uL Eos # (Auto) (0.00-0.50) K/uL Baso # (Auto) (0.00-0.20) K/uL D-Dimer, Quantitative (0-400) ng/mL Sodium (136-145) mmol/L Potassium (3.5-5.1) mmol/L Chloride (98-107) mmol/L Carbon Dioxide (21.0-32.0) mmol/L BUN (7-18) mg/dL Creatinine (0.51-1.17) mg/dL Est Cr Clr Drug Dosing Estimated GFR (MDRD) mL/min Glucose (74-106) mg/dL Calcium (8.5-10.1) mg/dL Magnesium (1.8-2.4) mg/dL Total Bilirubin (0.2-1.0) mg/dL AST (15-37) U/L ALT (12-78) U/L Alkaline Phosphatase (46-116) IU/L Troponin I 0.000 (0.000-0.056) ng/mL NT-Pro-B Natriuret Pep (0-125) pg/mL Total Protein (6.4-8.2) g/dL Albumin (3.4-5.0) g/dL Meds: Medications Discontinued Medications Generic Name Dose Route Start Last Admin Trade Name Freq PRN Reason Stop Dose Admin Al Hydroxide/Mg Hydroxide 30 ml 01/19/20 19:38 01/19/20 19:55 Gi Cocktail PO 01/19/20 19:39 30 ml ONETIME ONE Administration Magnesium Sulfate/Dextrose 1 100 mls @ 100 mls/hr 01/19/20 16:12 01/19/20 16:27 gm/ Premix IV 01/19/20 17:11 100 mls/hr ONETIME ONE Administration - Radiology Interpretation Free Text/Narrative:: Xray did not show any focal consolidations/acute changes - Re-Assessments/Exams Free Text/Narrative Re-Assessment/Exam: 01/19/20 20:17 CBC/Chem/Mg/Trop/DDimer/proBNP overall unremarkable except for low Mag. Patient has Mag supplement at home he was told to take during previous visit but admits he never started it. EKG showed no acute changes/ischemia. Patient's numbness improved to only his hand on left side. Denied chest pain/ischemic symptoms. Did not want to be admitted observation for telemetry/serial troponin measurements. Was willing to stay for 4 hours and have troponin and EKG checked again. Troponin remained zero/EKG again NSR. Numbness had resolved by time of second blood draw. Plan at this time is to let pt go home. Close follow up with PCP advised. Recommend stress testing for more formal rule out of cardiac contribution to complaint. Differential includes musculoskeletal etiology as well as GI. May need further GI evaluation. Precautions reviewed. Patient says he will be starting his Magnesium supplement as previously directed. Diet and lifestyle intervention discussed extensively during patient's stay. To return to ER if any sudden worsening/changes noted. Departure - Departure Time of Disposition: 19:45 Disposition: Home, Self-Care 01 Condition: Good Clinical Impression: Left upper extremity numbness, Hypomagnesemia - Discharge Information *PRESCRIPTION DRUG MONITORING PROGRAM REVIEWED*: Not Applicable *COPY OF PRESCRIPTION DRUG MONITORING REPORT IN PATIENT MERYL: Not Applicable Referrals: PCP,Unknown [Primary Care Provider] - Forms: ED Department Discharge Additional Instructions: Follow up with your primary care provider of choice and discuss having stress test arranged to more fully rule out cardiac contribution to today's left arm numbness/tingling. Discuss your diabetes medications/concerns at that time. Follow up in ER if you have sudden chest pain/shortness of breath/other significant changes. Strongly recommend dietary changes as we discussed to help with general health. Recommend reading [employer] by Justin. Also What the Heck Can I Cook? and What the Heck can I Eat? by . Work up to being able to take a 12 hour break from food (ok to drink water) every day. Sepsis Event Note (ED) - Evaluation Sepsis Screening Result: No Definite Risk - Focused Exam Vital Signs: Vital Signs Temp Pulse Resp BP Pulse Ox 01/19/20 17:30 36.8 C 69 18 139/56 L 96 01/19/20 15:11 36.9 C 72 20 136/65 98 - My Orders Last 24 Hours: My Active Orders 01/19/20 14:40 Chest 2V [CR] Stat 01/19/20 14:41 EKG Documentation Completion [RC] ASDIRECTED 01/19/20 16:15 EKG Documentation Completion [RC] ASDIRECTED - Assessment/Plan Last 24 Hours: My Active Orders 01/19/20 14:40 Chest 2V [CR] Stat 01/19/20 14:41 EKG Documentation Completion [RC] ASDIRECTED 01/19/20 16:15 EKG Documentation Completion [RC] ASDIRECTED
[2020-01-19] MEDS ORDERED: GI Cocktail Oral Solution 30 ML PO ONE (19:38)
[2020-01-19 21:05] VITALS: BP 138/72; PULSE 80
== END 2020-01-19 20:00 | disposition home or self-care (01) ==
LOC: LL.ED 14:37
DX: E83.42 Hypomagnesemia (principal); I25.10 Atherosclerotic heart disease of native coronary artery without angina pectoris; I10 Essential (primary) hypertension; I25.2 Old myocardial infarction; J44.9 Chronic obstructive pulmonary disease, unspecified; F41.9 Anxiety disorder, unspecified; F32.9 Major depressive disorder, single episode, unspecified; E11.9 Type 2 diabetes mellitus without complications; E03.9 Hypothyroidism, unspecified; E66.9 Obesity, unspecified; Z68.43 Body mass index [BMI] 50.0-59.9, adult; Z79.84 Long term (current) use of oral hypoglycemic drugs; Z79.899 Other long term (current) drug therapy
CPT/HCPCS: 36415; 71046; 80053; 83735; 83880; 84484; 85025; 85379; 93005; 96365; 99284; A9270; J3475; 93010

== ENCOUNTER 2022-04-10 01:50 | Emergency (ER) | payer BC ==
[2022-04-10] MEDS ORDERED: Sodium Chloride 0.9% 10 ML Syringe FLUSH PRN (01:53)
[2022-04-10 02:40] LABS: ANION GAP 11.7 meq/L (7-15); CHLORIDE,CL 100 mmol/L (98-107); ESTIMATED GFR 70 mL/min (>=60); SODIUM,NA 134 mmol/L (136-145)
[2022-04-10 02:41] LABS: PTT,PARTIAL THROMBOPLSTIN TIME 25.6 SEC (23.6-29.8)
[2022-04-10] MEDS ORDERED: Iopamidol 612 MG/ML 100 ML Bottle ONE (03:10)
[2022-04-10] MEDS ORDERED: Take Home: Amoxicillin/Clavulanate K 875-125 MG Tab, 6 Tab Pack ONE (03:30)
[2022-04-10] MEDS: Iopamidol 612 MG/ML 100 ML Bottle IVPUSH ONE (03:41)
[2022-04-10] MEDS ORDERED: Take Home: Sulfamethoxazole/Trimethoprim 800-160 MG Tab, 6 Tab Pack PO ONE (07:49)
[2022-04-10] MEDS: Take Home: Sulfamethoxazole/Trimethoprim 800-160 MG Tab, 6 Tab Pack PO ONE (08:54)
[2022-04-10 10:05] VITALS: BP 128/64; PULSE 70
[2022-04-11] MEDS ORDERED: Take Home: Amoxicillin/Clavulanate K 875-125 MG Tab, 6 Tab Pack PO ONE (11:01)
[2022-04-11] MEDS: Take Home: Amoxicillin/Clavulanate K 875-125 MG Tab, 6 Tab Pack PO ONE (15:00)
== END 2022-04-10 08:56 | disposition home or self-care (01) ==
LOC: LL.ED 01:50
DX: N39.0 Urinary tract infection, site not specified (principal); R31.9 Hematuria, unspecified; R20.0 Anesthesia of skin; R20.2 Paresthesia of skin; I25.10 Atherosclerotic heart disease of native coronary artery without angina pectoris; E78.00 Pure hypercholesterolemia, unspecified; I10 Essential (primary) hypertension; I25.2 Old myocardial infarction; J44.9 Chronic obstructive pulmonary disease, unspecified; E03.9 Hypothyroidism, unspecified; E66.9 Obesity, unspecified; Z91.048 Other nonmedicinal substance allergy status; Z88.8 Allergy status to other drugs, medicaments and biological substances; Z79.899 Other long term (current) drug therapy; Z68.42 Body mass index [BMI] 45.0-49.9, adult
CPT/HCPCS: 36415; 71260; 80053; 81001; 83735; 84484; 85025; 85610; 85730; 87086; 87088; 87186; 93005; 93010; 99284; A9270-GY; Q9967

== ENCOUNTER 2023-12-29 07:48 | Day surgery (SDC) | payer MEDICARE, BC ==
[~2023-12-29 07:48] MED LIST: Midazolam 1 MG/ML 2 ML SDV ONE; Propofol 200 MG/20 ML SDV ONE
[2023-12-29] MEDS ORDERED: Sodium Chloride 0.9% 10 ML Syringe FLUSH PRN (08:00)
[2023-12-29] MEDS: Lactated Ringers 1,000 ML IV SCH (08:28)
[2023-12-29 09:52] VITALS: BP 128/70; PULSE 60
== END 2023-12-29 10:06 | disposition home or self-care (01) ==
LOC: LL.SDS 07:48
PROVIDERS: ATTEND Surgery
DX: Z12.11 Encounter for screening for malignant neoplasm of colon (principal); K63.5 Polyp of colon; K57.30 Diverticulosis of large intestine without perforation or abscess without bleeding; Z86.0100 Personal history of colon polyps, unspecified; I10 Essential (primary) hypertension; G47.33 Obstructive sleep apnea (adult) (pediatric); E78.49 Other hyperlipidemia; E03.9 Hypothyroidism, unspecified; E66.01 Morbid (severe) obesity due to excess calories; E11.9 Type 2 diabetes mellitus without complications; F41.9 Anxiety disorder, unspecified; F32.A Depression, unspecified; Z79.890 Hormone replacement therapy; Z79.899 Other long term (current) drug therapy; Z91.030 Bee allergy status
CPT/HCPCS: 00811; 45385; J2250; J2704; J7120; 88305